=== PATIENT | male | born 1990 | race Caucasian/White ===

== ENCOUNTER 2019-05-26 12:33 | Emergency (ER) | payer OTHER ==
[~2019-05-26] VITALS: Ht 177.8 cm; Wt 93.0 kg
[2019-05-26 12:47] VITALS: BP 131/88
--- NOTE | 2019-05-26 13:22 | NUR ---
PATIENT AMBULATED TO ER BED 10
[2019-05-26] MEDS ORDERED: PANTOPRAZOLE 40 MG TABEC PO ONE (14:00)
[2019-05-26] MEDS ORDERED: LIDOCAINE VISCOUS 2% 20 ML UDC PO ONE (14:00)
[2019-05-26] MEDS ORDERED: DICYCLOMINE HCL LIQUID 10 MG/5 ML UDC PO ONE (14:00)
[2019-05-26] MEDS ORDERED: ALUMINUM HYD/MAG/SIMETHICONE 30 ML UDC PO ONE (14:00)
--- NOTE | 2019-05-26 14:35 | NUR ---
28 Y/O MALE C/O OF NAUSEA AND VOMITING SINCE YESTERDAY. HE STATED THAT HE WENT DRINKING SUNDAY AND NOTICED TODAY THAT WE WAS NAUSEATED AND SPITTING UP CONSTANT SALIVA. HE ALSO NOTES A BURNING SENSATION. HE TOOK TUMS FOR RELIEF BUT DID NOT RELIEVE THE BURNING. PATIENT IS A/O X4. ABDOMEN IS SOFT AND ROUND. BOWEL SOUNDS AER ACTIVE ON ALL FOUR QUADRANTS.
[2019-05-26 15:31] VITALS: BP 110/74
--- NOTE | 2019-05-26 15:31 | NUR ---
Patient discharged with v/s stable. Written and verbal after care instructions given and explained. Patient alert, oriented and verbalized understanding of instructions. Ambulatory with steady gait. All questions addressed prior to discharge. ID band removed. Patient advised to follow up with PMD. Rx of PROTONIX 40 MG AND HYDROCORTISONE 2.5% TOPICAL CREAM given. Patient educated on indication of medication including possible reaction and side effects. Opportunity to ask questions provided and answered.
== END 2019-05-26 15:28 | disposition home or self-care (01) ==
LOC: MED 12:33
DX: K29.70 Gastritis, unspecified, without bleeding (principal); J02.9 Acute pharyngitis, unspecified
CPT/HCPCS: 99284

== ENCOUNTER 2019-09-20 14:12 | Emergency (ER) | payer OTHER ==
[~2019-09-20] VITALS: Ht 175.3 cm; Wt 90.3 kg
[2019-09-20 14:14] VITALS: BP 136/89
--- NOTE | 2019-09-20 14:16 | NUR ---
PT TO X-RAY VIA WHEELCHAIR
[2019-09-20] MEDS ORDERED: ONDANSETRON 4 MG/2 ML VIAL IVP ONE (15:05)
[2019-09-20] MEDS ORDERED: NACL 0.9% 1,000 ML IV ONE (15:05)
--- NOTE | 2019-09-20 15:11 | NUR ---
PATIENT TAKEN FOR X-RAY BY WHEELCHAIR.
[2019-09-20 15:35] LABS: BASOPHILS % (AUTO) 0.2 % (0.0-2.0); EOSINOPHILS % (AUTO) 0.2 % (0.0-4.0); HEMATOCRIT 46.6 % (36-52); HEMOGLOBIN 15.6 g/dL (12.0-18.0); LYMPHOCYTES # (AUTO) 1.1 K/uL (2.0-11.5); LYMPHOCYTES % (AUTO) 7.7 % (20.5-51.1); MEAN CORPUSCULAR HEMOGLOBIN 30 pg (27-31); MEAN CORPUSCULAR HGB CONC 34 g/dL (33-37); MEAN CORPUSCULAR VOLUME 88.8 fL (80-94); MONOCYTES # (AUTO) 0.9 K/uL (0.8-1.0); MONOCYTES % (AUTO) 6.5 % (1.7-9.3); NEUTROPHILS % (AUTO) 85.4 % (42.2-75.2); PLATELET COUNT (AUTO) 226 K/uL (140-450); RED BLOOD CELL COUNT(AUTO) 5.24 MIL/uL (4.20-6.10); RED CELL DISTRIBUTION WIDTH 13.4 % (11.6-13.7); WHITE BLOOD COUNT (AUTO) 14.1 K/uL (4.8-10.8)
[2019-09-20 15:42] LABS: ANION GAP 11.9 (8-16); CARBON DIOXIDE 29.6 mmol/L (21-32); POTASSIUM 4.5 mmol/L (3.5-5.1)
[2019-09-20 15:49] LABS: ALBUMIN 3.6 g/dL (3.4-5.0); TOTAL BILIRUBIN 0.7 mg/dL (0.0-1.0)
--- NOTE | 2019-09-20 16:29 | NUR ---
PATIENT STATES THAT HE HAS BEEN DONATING PLASMA X2 A WEEK. PER DR. GIRALDO, PATIENT IS TO STOP DONATING PLASMA UNTIL SYMPTOMS RESOLVE AND NOT FREQUENT.
[2019-09-20 16:39] VITALS: BP 109/58
--- NOTE | 2019-09-20 16:40 | NUR ---
Patient discharged with v/s stable. Written and verbal after care instructions given and explained. Patient alert, oriented and verbalized understanding of instructions. Ambulatory with steady gait. All questions addressed prior to discharge. ID band removed. Patient advised to follow up with PMD. Rx of MINERAL OIL, ZOFRAN given. Patient educated on indication of medication including possible reaction and side effects. Opportunity to ask questions provided and answered.
== END 2019-09-20 16:40 | disposition home or self-care (01) ==
LOC: MED 14:12
DX: R11.0 Nausea (principal); E86.0 Dehydration; R42 Dizziness and giddiness
CPT/HCPCS: 36415; 74022; 80053; 85025; 96361; 96374; 99284; J2405; J7030